=== PATIENT | male | born 1950 | race Caucasian/White ===

== ENCOUNTER 2021-01-05 21:41 | Emergency (ER) | payer MEDICARE ==
[~2021-01-05] VITALS: Ht 185.4 cm; Wt 116.4 kg
[2021-01-05] MEDS ORDERED: ONDANSETRON 2MG/ML, 2ML IVPush ONE (22:00)
[2021-01-05] MEDS ORDERED: MORPHINE SULFATE 4 MG/ML, 1ML IVPush PRN (22:00)
[2021-01-05 22:31] LABS: BASOPHILS % (AUTO) 1 % (0-1); EOSINOPHILS % (AUTO) 3 % (1-7); LYMPHOCYTES % (AUTO) 21 % (22-44); MEAN CORPUSCULAR HEMOGLOBIN 30.8 pg (27.5-34.5); MEAN CORPUSCULAR HGB CONC 33.9 g/dL (33.2-36.2); MEAN PLATELET VOLUME 7.5 fL (7.4-10.4); MONOCYTES % (AUTO) 9 % (2-9); NEUTROPHILS % (AUTO) 66 % (42-75); PLATELET COUNT 290 x10^3/uL (130-400); RED BLOOD COUNT 5.25 x10^6/uL (4.38-5.82)
[2021-01-05 22:43] LABS: ALANINE AMINOTRANSFERASE 18 U/L (12-78); ALBUMIN 3.8 g/dL (3.4-5.0); ANION GAP 6 mmol/L (5-15); CALCIUM 8.7 mg/dL (8.5-10.1); CHLORIDE 109 mmol/L (98-107); CREATININE 1.37 mg/dL (0.7-1.3)
[2021-01-05 22:45] LABS: ALKALINE PHOSPHATASE 39 U/L (45-117); BILIRUBIN,TOTAL 0.3 mg/dL (0.2-1.0); TOTAL PROTEIN 7.5 g/dL (6.4-8.2)
--- NOTE | 2021-01-05 23:03 | NUR ---
LOCATOR SPECIALIST: PT. TO ROOM FRO LOBBY AT THIS TIME.
[2021-01-05] MEDS ORDERED: KETOROLAC 30 MG/1 ML ONE (23:12)
[2021-01-05] MEDS ORDERED: MORPHINE SULFATE 4 MG/ML, 1ML ONE (23:13)
[2021-01-05] MEDS ORDERED: ONDANSETRON 2MG/ML, 2ML ONE (23:13)
[2021-01-05 23:25] VITALS: BP 133/74
--- NOTE | 2021-01-05 23:26 | NUR ---
pt c/o llq pain and l flank pain, states he thinks it is a kidney stone. meds admin per order, fluids infusing, pt aware of needed ua, unable to provide urine at this time.
[2021-01-05 23:28] LABS: TROPONIN I < 0.015 ng/mL (0.000-0.045)
[2021-01-05] MEDS ORDERED: KETOROLAC 30 MG/1 ML IVPush ONE (23:30)
[2021-01-05] MEDS ORDERED: SODIUM CHLORIDE 0.9% 1,000ML IVBOLUS ONE (23:30)
--- NOTE | 2021-01-06 00:05 | NUR ---
urine sent to lab
[2021-01-06 00:13] LABS: MICROSCOPIC INDICATED
--- NOTE | 2021-01-06 01:18 | NUR ---
pt educated on dc instructions, verbalizwed understanding. ambulatory to dc desk with steady gait.
== END 2021-01-06 01:24 | disposition home or self-care (01) ==
LOC: ED 23:57
DX: N20.1 Calculus of ureter (principal); R94.31 Abnormal electrocardiogram [ECG] [EKG]
CPT/HCPCS: 36415; 74176; 80053; 81001; 83690; 84484; 85025; 93005; 96361; 96374; 96375; 99285; J1885; J2270; J2405; J7030